=== PATIENT | female | born 1940 | race Caucasian/White ===

== ENCOUNTER 2016-06-15 08:28 | Day surgery (SDC) | payer MEDICARE, BC ==
[~2016-06-15] VITALS: Ht 172.7 cm; Wt 78.0 kg
[2016-06-15] VITALS (8 sets, daily range): BP systolic 131–156; BP diastolic 89–95; PULSE 74–82; RESP 14–18; TEMP 97.7–98.1; O2SAT 96–100
[~2016-06-15 08:28] MED LIST: ATOR40TA49 PO; BENA10TA PO; D3 +TAB PO; DIAZ5 PO; IMDU30TA PO; MAGO400T PO; METH10003 SL; OMEP40CA2 PO
[2016-06-15] MEDS ORDERED: INSULIN HUMAN REGULAR 1,000 UNITS/10 ML VIAL SQ PRN (09:00)
[2016-06-15] MEDS ORDERED: SODIUM CHLORID 0.9% 500 ML INJ 500 ML IV SCH (09:00)
[2016-06-15] MEDS ORDERED: SODIUM CHLORID 0.9% 500 ML IV SCH (09:00)
[2016-06-15] MEDS ORDERED: LORazepam 1 MG TAB SL SCH (09:00)
[2016-06-15] MEDS ORDERED: LACTATED RINGER'S 1000 ML IV SCH (09:00)
[2016-06-15] MEDS ORDERED: METOPROLOL TARTRATE 25 MG TAB PO PRN (09:00)
[2016-06-15] MEDS ORDERED: ATEN25TA PO (09:26)
[2016-06-15] MEDS ORDERED: PANT40TA3 PO (09:26)
[2016-06-15] MEDS ORDERED: MAGN400T2 PO (09:26)
[2016-06-15] MEDS ORDERED: DIAZ5 PO (09:26)
[2016-06-15] MEDS ORDERED: SPIR50TA PO (09:26)
[2016-06-15] MEDS ORDERED: APIX5TAB PO (09:26)
[2016-06-15] MEDS ORDERED: NITR0.4S SL (09:26)
[2016-06-15] MEDS ORDERED: LIPI40TA PO (09:26)
[2016-06-15] MEDS ORDERED: BENA10TA PO (09:26)
[2016-06-15 09:31] LABS: AUTOMATED NEUTROPHIL # 2.9 TH/MM3 (1.8-7.7); BASOPHIL % 0.9 % (0.0-2.0); EOSINOPHIL % 0.7 % (0.0-4.0); HEMATOCRIT 37.8 % (35.0-46.0); HEMO FLAGS DIFF FINAL; LYMPH % 34.2 % (9.0-44.0); LYMPHOCYTE # 1.7 TH/MM3 (1.0-4.8); MEAN CORPUSCULAR HEMOGLOBIN 33.3 PG (27.0-34.0); MEAN CORPUSCULAR HGB CONC 35.4 % (32.0-36.0); MONO % 6.7 % (0.0-8.0); NEUT % 57.5 % (16.0-70.0); PLATELET COUNT 208 TH/MM3 (150-450); RED BLOOD COUNT 4.01 MIL/MM3 (4.00-5.30); RED CELL DISTRIBUTION WIDTH 13.2 % (11.6-17.2)
[2016-06-15 09:37] LABS: APTT (PATIENT) 29.2 SEC (24.3-30.1); INTERNATIONAL NORMALIZED RATIO 1.1 RATIO; PROTHROMBIN TIME - PATIENT 11.9 SEC (9.8-11.6)
[2016-06-15] MEDS ORDERED: ceFAZolin 2 GM PREMIX 50 ML IV ONE (10:15)
[2016-06-15 10:20] LABS: BICARBONATE 29.7 MEQ/L (21.0-32.0); POTASSIUM 3.1 MEQ/L (3.5-5.1)
[2016-06-15] MEDS ORDERED: PROTAMINE SULFATE 50 MG/5 ML VIAL ONE (10:52)
[2016-06-15] MEDS ORDERED: HEPARIN SODIUM - IV 10,000 UNITS/10 ML VIAL ONE (10:52)
[2016-06-15] MEDS ORDERED: FUROSEMIDE 40 MG/4 ML VIAL ONE (10:52)
[2016-06-15] MEDS ORDERED: HEPARIN-D5W INJ 250 ML ONE (10:52)
[2016-06-15] MEDS ORDERED: PHENYLEPH/NS 1000 MCG/10 ML SYR IV ONE (11:40)
[2016-06-15] MEDS ORDERED: PROPOFOL 200 MG/20 ML AMP IV ONE (11:40)
[2016-06-15] MEDS ORDERED: ONDANSETRON HCL 4 MG/2 ML VIAL IV PUSH ONE (11:40)
[2016-06-15] MEDS ORDERED: POTASSIUM CHLORIDE INJ 40 MEQ in SODIUM CHLORID 0.9% 500 ML INJ 500 ML IV SCH (11:45)
[2016-06-15] MEDS ORDERED: ATROPINE SULFATE 1 MG/ML VIAL IV PRN (14:45)
[2016-06-15] MEDS ORDERED: oxyCODONE/ACETAMINOPHEN 5 MG/325 MG TAB PO PRN (14:45)
[2016-06-15] MEDS ORDERED: LORazepam 2 MG/ML VIAL IV PRN (14:45)
[2016-06-15] MEDS ORDERED: ONDANSETRON HCL 4 MG/2 ML VIAL IV PRN (14:45)
[2016-06-15] MEDS ORDERED: LIDOCAINE HCL 1% 50 ML VIAL INFIL PRN (14:45)
[2016-06-15] MEDS ORDERED: SODIUM CHLOR 0.9% 250 ML INJ 250 ML IV PRN (14:45)
[2016-06-15] MEDS ORDERED: BACITRACIN OINT 0.9 GM PKT TOP ONE (14:45)
[2016-06-15] MEDS ORDERED: AMIODARONE 200 MG TAB PO SCH (14:45)
[2016-06-15] MEDS ORDERED: METOCLOPRAMIDE HCL 10 MG/2 ML VIAL IV PRN (14:45)
[2016-06-15] MEDS ORDERED: fentaNYL CITRATE 250 MCG/5 ML AMP ONE (15:02)
[2016-06-15] MEDS ORDERED: GLYCOPYRROLATE 0.2 MG/ML VIAL ONE (15:03)
[2016-06-15] MEDS ORDERED: DO NOT ADM ANY ANTICOAGULANT DRUGS XX PRN (15:30)
[2016-06-15] MEDS: KETOROLAC TROMETHAMINE 10 MG TAB PO SCH ×3 (18:01→23:53)
[2016-06-15] MEDS: DIAZEPAM 5 MG TAB PO SCH (21:00)
[2016-06-15] MEDS: APIXABAN 5 MG TABLET PO SCH (21:00)
[2016-06-15] MEDS ORDERED: ATORVASTATIN 40 MG TAB PO SCH (21:00)
[2016-06-16] VITALS (14 sets, daily range): BP systolic 128–162; BP diastolic 87–110; PULSE 57–88; RESP 14–20; TEMP 97.7–98.5; O2SAT 96–98
[2016-06-16] MEDS: DIAZEPAM 5 MG TAB PO SCH ×2 (00:32→07:51)
--- NOTE | 2016-06-16 06:43 | EKG ---
Date Performed: 06/15/2016 Time Performed: 15:12:39 PTAGE: 76 years EKG: ATRIAL FIBRILLATION WITH SLOW VENTRICULAR RESPONSE NONSPECIFIC ST & T-WAVE ABNORMALITY ABNO RMAL RHYTHM ECG PREVIOUS TRACING : 06/15/2016 09.31 Compared to prior tracing no significant change DOCTOR: Sandro Salomon Interpretating Date/Time 06/16/2016 06:42:01
--- NOTE | 2016-06-16 06:47 | EKG ---
Date Performed: 06/15/2016 Time Performed: 09:31:22 PTAGE: 76 years EKG: Atrial fibrillation Prolonged QT interval Extensive ST-T changes are nonspecific Abnormal E CG PREVIOUS TRACING : 07/16/2013 06.47 Compared to prior tracing no significant change DOCTOR: Sandro Salomon Interpretating Date/Time 06/16/2016 06:44:34
[2016-06-16 07:25] LABS: PROTHROMBIN TIME - PATIENT 11.4 SEC (9.8-11.6)
[2016-06-16] MEDS: APIXABAN 5 MG TABLET PO SCH (07:52)
[2016-06-16] MEDS ORDERED: LISINOPRIL 10 MG TAB PO SCH (09:00)
[2016-06-16] MEDS ORDERED: SPIRONOLACTONE 50 MG TAB PO SCH (09:00)
[2016-06-16] MEDS ORDERED: MAGNESIUM OXIDE 400 MG TAB PO SCH (09:00)
[2016-06-16] MEDS ORDERED: PANTOPRAZOLE SOD 40 MG DELAYED RELEASE TAB PO SCH (09:00)
[2016-06-16] MEDS: KETOROLAC TROMETHAMINE 10 MG TAB PO SCH (10:00)
--- NOTE | 2016-06-16 12:41 | PD.CARD.PN ---
Subjective Subjective Remarks Feels ok. In afib on tele. Objective Medications Current Medications Medications (Trade) Dose Ordered Sig/Estrella Route Start Time Stop Time Status Last Admin (NS 500 ml Inj) 500 ml @ 30 mls/hr [id number] IV 06/15/16 09:00 (Ativan Inj) 0.5 mg UNSCH PRN IV 06/15/16 14:45 06/16/16 14:44 Atropine Sulfate 0.5 mg 0.5 mg UNSCH PRN IV 06/15/16 14:45 (NS 250 ml Inj) 250 ml @ 500 mls/hr ONCE PRN IV 06/15/16 14:45 06/16/16 14:44 (Reglan Inj) 10 mg Q4H PRN IV 06/15/16 14:45 (Zofran Inj) 4 mg Q4H PRN IV 06/15/16 14:45 (Xylocaine 1% Inj (50 ml)) 10 ml UNSCH PRN INFIL 06/15/16 14:45 06/16/16 14:44 (Toradol) 10 mg Q6H PO 06/15/16 16:00 06/20/16 15:59 06/15/16 18:01 (Eliquis) 5 mg BID PO 06/15/16 21:00 06/16/16 07:52 (Lipitor) 40 mg HS PO 06/15/16 21:00 06/15/16 22:55 (Prinivil) 10 mg DAILY PO 06/16/16 09:00 06/16/16 07:52 (Valium) 5 mg BID PO 06/15/16 21:00 06/16/16 07:51 (Mag-Ox) 400 mg DAILY PO 06/16/16 09:00 06/16/16 07:53 (Protonix) 40 mg DAILY PO 06/16/16 09:00 06/16/16 07:52 (Aldactone) 50 mg TuFr PO 06/16/16 09:00 06/16/16 07:53 (Cordarone) 400 mg DAILY PO 06/15/16 14:45 06/16/16 07:53 Miscellaneous Information ALL NURSING DEPARTME... UNSCH PRN XX 06/15/16 15:30 06/16/16 15:29 Vital Signs / I&O Vital Signs Date Time Temp Pulse Resp B/P Pulse Ox O2 Delivery O2 Flow Rate FiO2 06/16/16 12:00 68 06/16/16 11:00 62 06/16/16 11:00 98.5 74 20 146/100 98 06/16/16 10:00 57 06/16/16 09:00 84 06/16/16 08:00 84 06/16/16 07:00 84 06/16/16 07:00 97.7 75 20 162/110 98 06/16/16 06:00 82 06/16/16 05:00 66 06/16/16 04:00 97.7 84 14 139/87 97 06/16/16 04:00 66 06/16/16 03:00 83 06/16/16 02:00 70 06/16/16 01:00 78 06/16/16 00:00 97.7 83 14 128/89 96 06/16/16 00:00 84 06/15/16 23:00 82 06/15/16 22:00 80 06/15/16 21:00 80 06/15/16 20:00 97.7 80 14 131/95 97 06/15/16 20:00 80 06/15/16 18:00 74 06/15/16 17:30 98.1 75 18 141/89 96 06/15/16 17:00 74 06/15/16 16:10 49 15 95 Room Air 06/15/16 16:00 97.6 50 15 118/66 95 Room Air 06/15/16 15:45 46 15 116/68 95 Room Air 06/15/16 15:40 44 15 119/69 95 Room Air 06/15/16 15:35 45 14 122/70 95 Room Air 06/15/16 15:30 47 14 127/70 95 Room Air 06/15/16 15:25 53 13 135/75 94 Room Air 06/15/16 15:20 48 13 130/79 94 Room Air 06/15/16 15:15 50 13 128/64 95 Room Air 06/15/16 15:00 47 13 130/78 94 Room Air 06/15/16 14:55 97.8 55 12 126/61 94 Room Air I/O 06/15/16 06/15/16 06/15/16 06/16/16 06/16/16 06/16/16 07:00 15:00 23:00 07:00 15:00 23:00 Intake Total 1000 ml 100 ml Output Total 650 ml 150 ml Balance 350 ml -50 ml Intake IV Total 100 ml Other 1000 ml Output Urine Total 500 ml 150 ml Estimated Blood Loss 150 ml Physical Exam GENERAL: Well-nourished, well-developed patient. SKIN: Warm and dry. Groin sites soft with no hematoma or bleeding. HEAD: Normocephalic. EYES: No scleral icterus. No injection or drainage. NECK: Supple, trachea midline. No JVD or lymphadenopathy. CARDIOVASCULAR: Regular rate and rhythm without murmurs, gallops, or rubs. RESPIRATORY: Breath sounds equal bilaterally. No accessory muscle use. GASTROINTESTINAL: Abdomen soft, non-tender, nondistended. EXTREMITIES: No cyanosis, or edema. NEUROLOGICAL: Awake, alert, and oriented x 3. Non-focal. Laboratory Laboratory Tests Test 06/16/16 06:30 Prothrombin Time 11.4 SEC Prothromb Time International 1.0 RATIO Ratio Activated Partial 28.0 SEC Thromboplast Time Assessment and Plan Problem List: (1) Atrial fibrillation Assessment and Plan: Converted back into afib s/p ablation. Now on amiodarone. Rate controlled. (2) S/P ablation of atrial fibrillation Assessment and Plan: Groin sites stable, HR controlled, continue anticoagulant , will start loading dose of amio and d/c home with outpatient f/u per my jd Alberts. Problem Qualifiers (1) Atrial fibrillation: Qualified Code: I48.2 - Chronic atrial fibrillation Rebeca Glover Jun 16, 2016 12:41
[2016-06-16] MEDS ORDERED: AMIO200T PO ×2 (12:43)
--- NOTE | 2016-06-16 13:55 | EKG ---
Date Performed: 06/16/2016 Time Performed: 05:09:02 PTAGE: 76 years EKG: Atrial fibrillation Extensive ST-T changes are nonspecific Low QRS voltages in precordial l demetrio Compared to previous tracing the patient has developed atrial fibrillation with a controlled morris tricular response Abnormal ECG PREVIOUS TRACING : 06/15/2016 15.12 DOCTOR: Kristina Reed Interpretating Date/Time 06/16/2016 13:52:58
--- NOTE | 2016-07-01 13:19 | PD.CARD ---
Atrial Fibrillation Ablation PROCEDURE DATE: Jun 15, 2016 PROCEDURES PERFORMED: 1. Electrophysiology study on Isuprel infusion 2. CS cannulation 3. 3-D mapping 4. Transseptal approach 5. Right and left heart catheterization 6. Intracardiac echo 7. Radiofrequency ablation of atrial fibrillation 8. Pulmonary vein isolation 9. Posterior wall ablation 10. Mitral valve isolation 11. Mitral line creation 12. Left atrial tachycardia ablation 13. Roof line creation 14. Floor line creation 15. Anterior and posterior ablation 16. Cardioversion INDICATIONS FOR THE PROCEDURE Ms. Valentine is a 76-year-old female with history of atrial fibrillation despite multiple medications, symptomatic, on anticoagulation, admits for electrophysiology study and ablation. The risks, the nature and the benefits of the procedure were clearly stated to her. The risks include pneumothorax, cardiac perforation, stroke, need for open heart surgery and even . The patient understood and agreed to proceed. DESCRIPTION OF THE PROCEDURE IN DETAIL After written informed consent was obtained prior to esophageal echocardiogram, the patient was kept on the table where she was prepped and draped in the usual sterile fashion. Conscious sedation was initiated and maintained throughout the procedure by the anesthesiologist. Once sedation was verified, the right and left inguinal areas were anesthetized with 2% Xylocaine. Using modified Seldinger technique, the left femoral vein was cannulated on three occasions, three guidewires were advanced. Over the wire a 6, 7 and a 10-[place] Hemaquet were advanced. Then the left femoral artery was cannulated on one occasion, one guidewire was advanced. Over the wire a 4-[place] Hemaquet was advanced. Then the right femoral vein was cannulated on one occasion, one guidewire was advanced. Over the wire a 8-[place] Hemaquet was advanced. Then under fluoroscopic guidance through the 6 and 7-[place] Hemaquet, two 5-[place] Shine curved quadripolar electrophysiology catheters were advanced and placed around the His as well as coronary sinus. Basic interval was measured. The patient was in atrial fibrillation. Through the 10-[place] Hemaquet, a Cordis Alejo AcuNav intracardiac echo catheter was advanced and placed at the right atrium. Multiple view was obtained. There was no pericardial effusion, pulmonary vein was seen, atrial septal was visualized. Then the 8-[place] Hemaquet in the right femoral vein was exchanged for Agilis transseptal sheath that was placed all the way to the superior vena cava. Through the sheath a Aimee needle was advanced, then the sheath, the dilator and the needle were progressed until foci engaged. Once engaged, the needle was advanced. RF was delivered for 2 seconds. I was able to cross into the left atrium. Once the needle crossed, the dilator was advanced. Once the dilator crossed, the sheath was advanced. Once the sheath crossed, the dilator and the needle were removed. At this point I did flood the system and fluid movement was seen in the left atrium the indicates the sheath is in good position. The patient already received 8,000 units of heparin. The goal is to keep an ACT around 350 during ablation. Then through the sheath a St. Javid 20 pulse circumferential catheter was advanced. Using ClipClock endocardial solution mapping system, a two- dimensional configuration of the left atrium was obtained. Points were taken at the left superior and inferior veins, right superior and inferior veins, mitral valve, and appendages. Then through the sheath a St. Javid TactiCath 65cm 3.5mm irrigated tipped mapping and radiofrequency ablation catheter was advanced. Esophageal probe was placed temperature monitoring during ablation. When it increased to 0.5 degrees Celsius above baseline, I moved to a different area of the atrium. First I did isolate the left superior and inferior vein. I did make a [place] around the veins. Posterior was ablated. Then a roof line was created, a floor line was created, a mitral line was created, then the mitral valve was isolated. At that point the patient was in left atrial tachycardia. I did create a line from the floor to the roof area, passing by the left atrial appendage. Then the right superior and inferior veins were isolated. I did remap the atrium. There is no significant signal in the atrium. At this point I decided to proceed with cardioversion. A 200 sync biphasic joule was delivered that converted the patient into sinus rhythm. At that point I did advance the circumferential catheter again into the vein. There was no signal into the vein, pacing from the vein showed no conduction to the atrium. Isuprel infusion was initiated at 20 mcg for 10 minutes. No tachyarrhythmia was induced, post Isuprel no tachyarrhythmia was induced. At that point the procedure was complete. All catheters were removed, atrial septal sheath was exchanged for 9-[place] Hemaquet, intracardiac echo showed no pericardial effusion. There is still good flow in the pulmonary vein. The patient is going to be transferred to the recovery room. No incident report. The patient tolerated the procedure. Blood loss was minimal. FINDINGS 1. Electrocardiogram: At baseline the patient was in atrial fibrillation, post procedure the patient was in sinus rhythm. 2. Basic interval: Base cycle length was around 780. Post ablation she was around 940 milliseconds. AH at 90 and HV at 56 milliseconds. 3. Tachyarrhythmia: Atrial fibrillation was mapped and ablated. Atrial tachycardia was ablated. The ablation was successful. CONCLUSION Successful electrophysiology study, mapping, radiofrequency ablation of atrial fibrillation, left atrial tachycardia, pulmonary vein isolation, posterior ablation, mitral valve isolation, mitral line creation, roof line creation, floor line creation, left atrial tachycardia, and cardioversion. COMMENTS AND RECOMMENDATIONS The patient is going to be transferred to the telemetry unit. Will be observed and when stable can be discharged home. Justine Alberts MD Jul 01, 2016 13:19
--- NOTE | 2016-07-02 13:13 | ETE ---
Study Study Date:06/15/2016 STUDY CONCLUSIONS SUMMARY - Left ventricle: The cavity size was normal. Wall thickness was normal. Systolic function was normal. The estimated ejection fraction was in the range of 50% to 55%. Wall motion was normal; there were no regional wall motion abnormalities. - Aortic valve: No evidence of vegetation. - Mitral valve: No evidence of vegetation. Mild to moderate regurgitation. - Left atrium: The atrium was dilated. No evidence of thrombus in the atrial cavity or appendage. No evidence of thrombus in the atrial cavity or appendage. - Right atrium: No evidence of thrombus in the atrial cavity or appendage. - Atrial septum: No defect or patent foramen ovale was identified. Echo contrast study showed no [id number] atrial level shunt, at baseline or with provocation. - Tricuspid valve: No evidence of vegetation. - Pulmonic valve: No evidence of vegetation. If LV function is below 40, please consider prescribing an ACEI or ARB or document rationale for non-use. PROCEDURE DATA Consent: The risks, benefits, and alternatives to the procedure were explained to the patient and informed consent was obtained. Procedure: Initial setup. The patient was brought to the laboratory in the fasting state. Intravenous access was obtained. Surface ECG leads and pulse oximetric signals were monitored. Sedation. Conscious sedation was administered by anesthesiology. Transesophageal echocardiography. Topical anesthesia was obtained using viscous lidocaine. A transesophageal probe was inserted by the attending golf course manager. Image quality was good. Study completion: All IVs inserted during the procedure were removed. The patient tolerated the procedure well. There were no complications. Transesophageal echocardiography. 2D, complete spectral Doppler, and color Doppler. CARDIAC ANATOMY LEFT VENTRICLE: The cavity size was normal. Wall thickness was normal. Systolic function was normal. The estimated ejection fraction was in the range of 50% to 55%. Wall motion was normal; there were no regional wall motion abnormalities. AORTIC VALVE: Structurally normal valve. Trileaflet; normal thickness leaflets. Cusp separation was normal. No evidence of vegetation. Doppler: No significant regurgitation. Aorta: - There was no atheroma. There was no evidence for dissection. Aortic root: The aortic root was not dilated. Ascending aorta: The ascending aorta was normal in size. Aortic arch: The aortic arch was normal in size. Descending aorta: The descending aorta was normal in size. MITRAL VALVE: Structurally normal valve. Leaflet separation was normal. No evidence of vegetation. Doppler: Mild to moderate regurgitation. LEFT ATRIUM: The atrium was dilated. No evidence of thrombus in the atrial cavity or appendage. No evidence of thrombus in the atrial cavity or appendage. The appendage was morphologically a left appendage, multilobulated, and of normal size. Emptying velocity was normal. ATRIAL SEPTUM: No defect or patent foramen ovale was identified. Echo contrast study showed no [id number] atrial level shunt, at baseline or with provocation. RIGHT VENTRICLE: The cavity size was normal. Wall thickness was normal. Systolic function was normal. PULMONIC VALVE: Structurally normal valve. No evidence of vegetation. TRICUSPID VALVE: Structurally normal valve. Leaflet separation was normal. No evidence of vegetation. Doppler: Trace regurgitation. PULMONARY ARTERY: The main pulmonary artery was normal-sized. RIGHT ATRIUM: The atrium was normal in size. No evidence of thrombus in the atrial cavity or appendage. The appendage was morphologically a right appendage. PERICARDIUM: There was no pericardial effusion. Prepared and signed by Justine Alberts [id number]
== END 2016-06-16 13:56 | disposition home or self-care (01) ==
LOC: HDOC 08:28 → HDIC 08:30 → HCIS 16:23 → HDOC 06-16 13:56
PROVIDERS: ATTEND Internal Medicine Interventional Cardiology
DX: I48.2 Chronic atrial fibrillation (principal); I10 Essential (primary) hypertension; E78.5 Hyperlipidemia, unspecified; E11.9 Type 2 diabetes mellitus without complications; Z79.84 Long term (current) use of oral hypoglycemic drugs
CPT/HCPCS: 80048; 85002; 85025; 85610; 85730; 86850; 86900; 86901; 92960; 93005; 93312; 93320; 93325; 93613; 93623; 93656; 93662; C1730; C1731; C1732; C1759; C1766; C2630; J0690; J1644; J1940; J2370; J2405; J2720; J3010

== ENCOUNTER 2016-10-24 07:56 | Day surgery (SDC) | payer MEDICARE, BC ==
[~2016-10-24 07:56] MED LIST changes: +AMIO200T PO; +APIX5TAB PO; -ATOR40TA49 PO; -D3 +TAB PO; -IMDU30TA PO; +LIPI40TA PO; +MAGN400T2 PO; -MAGO400T PO; -METH10003 SL; +NITR0.4S SL; -OMEP40CA2 PO; +PANT40TA3 PO; +PROPOFOL 200 MG/20 ML AMP IV ONE; +SPIR50TA PO
[2016-10-24] MEDS ORDERED: LIPI40TA PO (09:06)
[2016-10-24] MEDS ORDERED: ATEN25TA PO (09:06)
[2016-10-24] MEDS ORDERED: INSULIN HUMAN REGULAR 1,000 UNITS/10 ML VIAL SQ PRN (09:15)
[2016-10-24] MEDS ORDERED: SODIUM CHLORID 0.9% 500 ML IV PRN (09:15)
[2016-10-24] MEDS ORDERED: POVIDONE IODINE 5% (ANTISEPSIS KIT) 4 APPLICATIONS EACH NARE PRN (09:15)
[2016-10-24] MEDS ORDERED: METOPROLOL TARTRATE 25 MG TAB PO PRN (09:15)
[2016-10-24] MEDS ORDERED: LACTATED RINGER'S 1000 ML IV PRN (09:15)
[2016-10-24] MEDS ORDERED: CHLORHEXIDINE GLUCONATE 2 % 1 PACK (2 CLOTHS) TOPICAL PRN (09:15)
--- NOTE | 2016-10-24 11:06 | MA ---
cc: ESTEFANY HORN M.D. DATE 10/24/2016 PROCEDURE PERFORMED Cardioversion INDICATIONS FOR THE PROCEDURE Mrs. Valentine is a 76-year-old female with atrial fibrillation, previous ablation who will undergo cardioversion. The risks, the nature and the benefit of the procedure are clearly stated to her. The risks include cardiac arrest, need for pacing support, need for intubation and even . She understood and agreed to proceed. PROCEDURE After written informed consent was obtained, the patient was evaluate by anesthesiologist. Anterolateral pads were placed. Subsequently, a 28 sync biphasic joule was delivered that converted the patient into sinus rhythm. At that point, the procedure was completed. The patient fully recovered from sedation. She will be observed. She will be discharged home later today. CONCLUSION Successful cardioversion RECOMMENDATIONS The patient will be monitor and as mentioned before will be discharged home later today. MD RASHMI Chinchilla/BARB /10:36 AM /11:06 AM
--- NOTE | 2016-10-24 18:21 | EKG ---
Date Performed: 10/24/2016 Time Performed: 09:58:42 PTAGE: 76 years EKG: BASELINE ARTIFACT PRESENT. Sinus bradycardia Prolonged QT interval Anterior T wave changes are nonspecific Borderline ECG COMPARED TO PRIOR ELECTROCARDIOGRAM, Sinus bradycardia appears to have replaced atrial fibrillation. PREVIOUS TRACING : 10/24/2016 08.41 DOCTOR: Rl Gibson Interpretating Date/Time 10/24/2016 18:20:44
--- NOTE | 2016-10-24 18:24 | EKG ---
Date Performed: 10/24/2016 Time Performed: 08:41:54 PTAGE: 76 years EKG: Atrial fibrillation Inferior and ant/septal T wave changes are nonspecific Abnormal ECG NO SIGNIFICANT CHANGE FROM PRIOR ELECTROCARDIOGRAM. PREVIOUS TRACING : 06/16/2016 05.09 DOCTOR: Rl Gibson Interpretating Date/Time 10/24/2016 18:22:44
== END 2016-10-24 10:30 | disposition home or self-care (01) ==
LOC: HSDC 07:56 → HDIC 07:58 → HSDC 10:30
PROVIDERS: ATTEND Internal Medicine Interventional Cardiology
DX: I48.91 Unspecified atrial fibrillation (principal); I49.5 Sick sinus syndrome; I34.1 Nonrheumatic mitral (valve) prolapse; R07.89 Other chest pain; E11.9 Type 2 diabetes mellitus without complications; E78.5 Hyperlipidemia, unspecified; M79.7 Fibromyalgia; I10 Essential (primary) hypertension; E87.1 Hypo-osmolality and hyponatremia; K21.9 Gastro-esophageal reflux disease without esophagitis; K58.9 Irritable bowel syndrome, unspecified
CPT/HCPCS: 92960; 93005